=== PATIENT | female | born 1970 | race Caucasian/White ===

== ENCOUNTER 2019-04-29 15:30 | Inpatient (IN) | payer BC ==
[~2019-04-29] VITALS: Ht 175.3 cm; Wt 69.0 kg
[2019-05-03 06:48] VITALS: BP 103/72
== END 2019-05-03 12:57 | disposition home or self-care (01) | DRG 920 ==
LOC: ED 17:30 → EDIP 17:38 → 3NE 19:50 → DCLOUNGE 05-03 12:41
PROVIDERS: ADMIT Internal Medicine; ATTEND Internal Medicine
PROC: 0JH63XZ Insertion of Tunneled Vascular Access Device into Chest Subcutaneous Tissue and Fascia, Percutaneous Approach (ICD-10-PCS; principal; 2019-05-03)
PROC: 02HV33Z Insertion of Infusion Device into Superior Vena Cava, Percutaneous Approach (ICD-10-PCS; 2019-05-03)
PROC: B5181ZA Fluoroscopy of Superior Vena Cava using Low Osmolar Contrast, Guidance (ICD-10-PCS; 2019-05-03)
PROC: B548ZZA Ultrasonography of Superior Vena Cava, Guidance (ICD-10-PCS; 2019-05-03)
DX: L76.34 Postprocedural seroma of skin and subcutaneous tissue following other procedure (principal); I47.1 Supraventricular tachycardia; T81.49XA Infection following a procedure, other surgical site, initial encounter; L02.818 Cutaneous abscess of other sites; E89.0 Postprocedural hypothyroidism; D75.1 Secondary polycythemia; E05.00 Thyrotoxicosis with diffuse goiter without thyrotoxic crisis or storm; F17.210 Nicotine dependence, cigarettes, uncomplicated; G89.29 Other chronic pain; M54.2 Cervicalgia; L50.9 Urticaria, unspecified; R13.10 Dysphagia, unspecified; G43.909 Migraine, unspecified, not intractable, without status migrainosus; B96.89 Other specified bacterial agents as the cause of diseases classified elsewhere; I25.2 Old myocardial infarction; Z80.41 Family history of malignant neoplasm of ovary; Z82.49 Family history of ischemic heart disease and other diseases of the circulatory system; Z88.2 Allergy status to sulfonamides; Z88.0 Allergy status to penicillin; Z90.710 Acquired absence of both cervix and uterus; Y83.8 Other surgical procedures as the cause of abnormal reaction of the patient, or of later complication, without mention of misadventure at the time of the procedure; Z98.1 Arthrodesis status; Y92.89 Other specified places as the place of occurrence of the external cause
CPT/HCPCS: 36415; 36573; 80053; 84439; 84443; 84481; 85025; 99156; 99285; G0378; J2250; J2405; J3010; J3370; C1751; J2310; J7030; J7050